=== PATIENT | male | born 1995 | race Caucasian/White ===

== ENCOUNTER 2017-06-12 18:19 | Emergency (ER) | payer BC ==
[2017-06-12 18:47] VITALS: BP 124/72
--- NOTE | 2017-06-12 19:00 | UC ---
Respiratory Complaint HPI - HPI Summary HPI Summary: 21 year old male presents with history of asthma. Patient states he woke up this morning feeling fatigued. Then today when working out he felt a tightness in his throat that was associated with feeling like he occasionally had to gasp for air and having a cough. It has been a few hours since he started to feel this way and symptoms have not worsened. He took a benadryl about an hour ago. He denies history of asthma or using an inhaler. He denies anaphylactic reaction. He has not had any knew foods. Pulse 68, O2 sat 97% on RA. Also with some swelling under his nipples been present for a year or so after taking a prohormone but he feels fine at this time and no SOB and no CARDOZA and the nipple feels fine as well but he just wanted to mention it . of note with his breathing he was able to complete his work out another 20 or so minutes after the sensation of SOB and did fine [ End ] - History of Current Complaint Chief Complaint: UCRespiratory Stated Complaint: DIFFICULTY BREATHING,NECK TIGHTNESS Time Seen by Provider: 06/12/17 18:49 Hx Obtained From: Patient Onset/Duration: Sudden Onset Severity Initially: Mild Severity Currently: None Aggravating Factors: Nothing Alleviating Factors: OTC Meds, Nothing Associated Signs And Symptoms: Positive: Negative - Allergies/Home Medications Allergies/Adverse Reactions: Allergies Allergy/AdvReac Type Severity Reaction Status Date / Time No Known Allergies Allergy Verified 06/12/17 18:42 Home Medications: Home Medications NK [No Home Medications Reported] 06/12/17 [History Confirmed 06/12/17] PMH/Surg Hx/FS Hx/Imm Hx Previously Healthy: Yes - Surgical History Surgical History: Yes Surgery Procedure, Year, and Place: Ear tubes; Adenoids - Social History Occupation: Student - [employer] Lives: Dormitory/Roommates Alcohol Use: Weekly Alcohol Amount: weekends Substance Use Type: None Smoking Status (MU): Never Smoked Tobacco - Immunization History Most Recent Influenza Vaccination: NONE 2017 Review of Systems Respiratory: Shortness Of Breath All Other Systems Reviewed And Are Negative: Yes Physical Exam Triage Information Reviewed: Yes Appearance: Well-Appearing, No Pain Distress, Well-Nourished Vital Signs: Initial Vital Signs Temp 98.8 F 06/12/17 18:42 Pulse 64 06/12/17 18:42 Resp 18 06/12/17 18:42 BP 124/72 06/12/17 18:42 Pulse Ox 100 06/12/17 18:42 Vital Signs Reviewed: Yes Eye Exam: Normal ENT Exam: Normal Dental Exam: Normal Neck exam: Normal Neck: Positive: 1 Respiratory Exam: Normal Respiratory: Positive: Chest non-tender, Lungs clear, Normal breath sounds, No respiratory distress Cardiovascular Exam: Normal Musculoskeletal Exam: Normal Neurological Exam: Normal Psychological Exam: Normal Skin Exam: Normal Skin: Positive: Other - left nipple with small round soft rubbery area that is 1x2 mm and minimally tender to palpation UC Diagnostic Evaluation - Laboratory O2 Sat by Pulse Oximetry: 100 Respiratory Course/Dx - Course Course Of Treatment: Sx resolved at this time and no acute concerns. Can take another benadryl before bed to prevent any rebound Sx. Early URI Sx? No anaphylaxis or respiratory concerns. Discussed S/S to look for to go to ED and also to discuss with general surgery in about potential removal of gynecomastia and he will f/u with PCP earlier if any concerns (no fam Hx of breast concerns in the family and with recent prohormone intake and no anti aromatase post cycle will Dx as gyno) - Differential Dx/Diagnosis Provider Diagnoses: gynecomastia and resolved dyspnea Discharge - Discharge Plan Condition: Good Disposition: HOME Patient Education Materials: Gynecomastia (ED), Dyspnea (ED)
== END 2017-06-12 19:12 | disposition home or self-care (01) ==
LOC: UCCORT 18:19
DX: R06.00 Dyspnea, unspecified (principal); N62 Hypertrophy of breast
CPT/HCPCS: 99201; G0463

== ENCOUNTER 2017-07-12 07:20 | Emergency (ER) | payer BC ==
[2017-07-12 07:29] VITALS: BP 127/62
--- NOTE | 2017-07-12 07:45 | UC ---
Throat Pain/Nasal [place] HPI - History of Current Complaint Chief Complaint: UCRespiratory Stated Complaint: SORE THROAT Time Seen by Provider: 07/12/17 07:25 Hx Obtained From: Patient Onset/Duration: Sudden Onset Severity: Moderate - 6 Cough: None Associated Signs & Symptoms: Positive: Negative - Epiglottits Risk Factors Epiglottis Risk Factors: Negative - Allergies/Home Medications Allergies/Adverse Reactions: Allergies Allergy/AdvReac Type Severity Reaction Status Date / Time No Known Allergies Allergy Verified 07/12/17 07:29 Home Medications: Home Medications Cough And Cold Med 1 dose PO DAILY PRN 07/12/17 [History Confirmed 07/12/17] Phenol (Antiseptic) [Chloraseptic] 1.4 % MT BID PRN 07/12/17 [History Confirmed 07/12/17] PMH/Surg Hx/FS Hx/Imm Hx Previously Healthy: Yes - Surgical History Surgical History: Yes Surgery Procedure, Year, and Place: Ear tubes; Adenoids - Family History Known Family History: Positive: None - Social History Occupation: Student Alcohol Use: Weekly Alcohol Amount: 10 Substance Use Type: None Smoking Status (MU): Never Smoked Tobacco - Immunization History Most Recent Influenza Vaccination: NONE 2016 Review of Systems Skin: Negative Eyes: Negative ENT: Sore Throat Respiratory: Negative Cardiovascular: Negative Gastrointestinal: Negative Genitourinary: Negative Motor: Negative Neurovascular: Negative Musculoskeletal: Negative Neurological: Negative Psychological: Negative Is Patient Immunocompromised?: No All Other Systems Reviewed And Are Negative: Yes Physical Exam Appearance: Well-Appearing Vital Signs: Initial Vital Signs Temp 97.7 F 07/12/17 07:24 Pulse 69 07/12/17 07:24 Resp 18 07/12/17 07:24 BP 127/62 07/12/17 07:24 Vital Signs Reviewed: Yes Eye Exam: Normal ENT: Positive: Hearing grossly normal, Pharyngeal erythema, TMs normal - Throat is erythematous. Neck exam: Other - sweollen glands bilateraly Neck: Positive: Enlarged Nodes @ - both sides, but not tender. Respiratory Exam: Normal Respiratory: Positive: Lungs clear, Normal breath sounds Cardiovascular Exam: Normal Cardiovascular: Positive: RRR, No Murmur, Brisk Capillary Refill Abdominal Exam: Normal - No masses. Abdomen Description: Positive: Nontender, No Organomegaly Bowel Sounds: Positive: Present Musculoskeletal Exam: Normal Neurological Exam: Normal Psychological Exam: Normal Skin Exam: Normal - Good turgor. Diagnostics - Laboratory Diagnostic Studies Completed/Ordered: RSS neagative Throat Pain/Nasal Course/Dx - Differential Dx/Diagnosis Differential Diagnosis/HQI/PQRI: Pharyngitis - Likely viral Provider Diagnoses: Acute viral pharyngitis Discharge - Discharge Plan Condition: Stable Disposition: HOME Discharge Disposition Comment: home Patient Education Materials: Upper Respiratory Infection (ED) Print Language: PERSIAN Referrals: Non Staff,Doctor [Primary Care Provider] - Additional Instructions: Follow up with primary care if symptoms worsen or fever .
== END 2017-07-12 08:11 | disposition home or self-care (01) ==
LOC: UCCORT 07:20
DX: J02.8 Acute pharyngitis due to other specified organisms (principal)
CPT/HCPCS: 87651; 99211; G0463